=== PATIENT | female | born 1960 | race Caucasian/White ===

== ENCOUNTER 2023-02-08 16:12 | Outpatient (REF) | payer OTHER, SELFPAY ==
[2023-02-08 14:23] LABS: Abs Immature Grans 0.01 10^3/uL (0.0-0.06); Absolute Basophil Count 0.11 10^3/uL (0.0-0.2); Absolute Eosinophil Count 0.18 10^3/uL (0.0-0.7); Absolute Lymphocyte Count 1.88 10^3/uL (1.2-3.4); Absolute Neutrophil Count 2.65 10^3/uL (1.2-6.7); Basophils % 2.1; Eosinophils % 3.4; HCT 44.5 % (36.0-46.0); Immature Grans % 0.2; Lymphocytes % 35.9; MCH 29.7 pg (27.0-33.0); MCHC 33.7 % (32.0-36.0); MCV 88 fL (80-95); MPV 10.8 fL (8.0-11.0); Monocytes % 7.6; Neutrophils % 50.8; Platelet Count 222 10^3/uL (130-400); RBC 5.05 10^6/uL (3.93-5.22); RDW 13.5 % (11.7-14.6); RDW-SD 43.6 fL; WBC 5.23 10^3/uL (4.4-10.8)
[2023-02-08 14:39] LABS: Hemoglobin A1C 5.6 % (<5.7)
[2023-02-08 14:43] LABS: Iron 98 ug/dL (50-170); Total Iron Binding Capacity 343 ug/dL (250-450); Transferrin Sat 29 % (15-50)
[2023-02-08 14:48] LABS: ALT 22 U/L (14-59); AST 22 U/L (15-37); Albumin 3.8 g/dL (3.4-5.0); Alkaline Phosphatase 65 U/L (46-116); Anion Gap 8.8 mmol/L (3-11); BUN 9 mg/dL (7-18); Bilirubin, Total 0.9 mg/dL (0.2-1.0); CO2 29.2 mmol/L (21.0-32.0); CREATININE 0.7 mg/dL (0.55-1.02); Calcium 9.5 mg/dL (8.5-10.1); Chloride 104 mmol/L (98-107); Estimated GFR 96.52 (mL/min/1.73m2); Ferritin 201 ng/mL (8-252); Glucose 96 mg/dL (74-106); Potassium 4.5 mmol/L (3.5-5.1); Sodium 142 mmol/L (136-145); TSH (W/Ref FT4) 1.39 uIU/mL (0.36-3.74); Total Protein 7.2 g/dL (6.4-8.2)
[2023-02-08 14:57] LABS: Vitamin D 25 Total 20.4 ng/mL (30-100)
== END 2023-02-08 16:13 | disposition home or self-care (01) ==
LOC: NCHCN 16:12
PROVIDERS: Visit Provider Family Medicine
DX: R73.03 Prediabetes (principal); R53.83 Other fatigue; G47.61 Periodic limb movement disorder; E66.8 Other obesity; E55.9 Vitamin D deficiency, unspecified; R79.89 Other specified abnormal findings of blood chemistry
CPT/HCPCS: 80053; 82306; 82728; 83036; 83540; 83550; 84443; 85025

== ENCOUNTER 2024-11-17 14:49 | Outpatient (REF) | payer MEDICARE, SELFPAY ==
[2024-11-17 21:45] LABS: Calculated LDL 114 mg/dL (<100); Cholesterol 194 mg/dL (<200); HDL Cholesterol 62 mg/dL (>or=50); Triglyceride 91 mg/dL (<150)
== END 2024-11-17 14:50 | disposition home or self-care (01) ==
LOC: NCHCN 14:49
PROVIDERS: PCP Family Medicine; Visit Provider Family Medicine
DX: Z13.220 Encounter for screening for lipoid disorders (principal)
CPT/HCPCS: 80061

== ENCOUNTER 2025-03-05 12:30 | Outpatient (REF) | payer MEDICARE, SELFPAY ==
[2025-03-05 16:44] LABS: ALT 27 U/L (14-59); AST 24 U/L (15-37); Albumin 3.9 g/dL (3.4-5.0); Alkaline Phosphatase 75 U/L (46-116); Anion Gap 9.0 mmol/L (3-11); BUN 9 mg/dL (7-18); Bilirubin, Total 1.0 mg/dL (0.2-1.0); CO2 28.0 mmol/L (21.0-32.0); Calcium 9.4 mg/dL (8.5-10.1); Calculated LDL 59 mg/dL (<100); Chloride 104 mmol/L (98-107); Cholesterol 123 mg/dL (<200); Estimated GFR 98.93 (mL/min/1.73m2); Glucose 107 mg/dL (74-106); HDL Cholesterol 50 mg/dL (>or=50); Potassium 4.2 mmol/L (3.5-5.1); Sodium 141 mmol/L (136-145); Total Protein 7.0 g/dL (6.4-8.2); Triglyceride 71 mg/dL (<150)
== END 2025-03-05 12:31 | disposition home or self-care (01) ==
LOC: NCHCN 12:30
PROVIDERS: PCP Family Medicine; Visit Provider Family Medicine
DX: E78.5 Hyperlipidemia, unspecified (principal)
CPT/HCPCS: 80053; 80061